=== PATIENT | female | born 1945 | race Caucasian/White ===

== ENCOUNTER → 2017-10-21 16:23 | Outpatient (CLI) | payer MEDICARE, SELFPAY ==
--- NOTE | 2017-10-21 | FLU_PTH ---
PATIENT: SALLY MCDANIELS LOC: [facility] U#:[id number] AGE/SX: 79/F ROOM: RE10/21/[address]: Dr. Charles Gonzalez MD : 1945 BED: DIS: SPEC #: [id number] RECD: 10/21/17 15:30 STATUS: TEDDY MIKHAIL #: [id number] SNOW: 10/21/17 00:[address]: Charles Gonzalez DEPT: CYTOLOGY RECD BY: Venkata Chappell ENTERED: 10/22/17 09:46 SP TYPE: Fluid OTHR DR: Ana Moe DO Tissues: Urine Procedures: Pap Stain (control) Special Stain Group II Surgery Specimen Level IV Cytospin Fluid HEADER OPERATION: Not noted PRE-OP DIAGNOSIS: Hematuria TISSUE SUBMITTED: Urine for cytology DIAGNOSIS CYTOLOGY Urine for cytology (cytospin): Rare atypical urothelial cells present. AM:ulices 10/23/17 COMMENT The findings are nonspecific and could represent a variety of conditions including infection, urolithiasis, instrumentation and low grade urothelial neoplasm. Clinical correlation is necessary. Case has been reviewed in consultation with Dr. Bhandari who concurs with the above diagnosis. IDC:AM CYTOLOGY STUDY Slides are reviewed. CYTOLOGY GROSS Received is 45 ml of cloudy yellow fluid labeled with the patient's name and and designated per the requisition as urine. Submitted for cytology preparation. /Abhishek 10/22/17 TC:? CPT: 28915
[2017-10-21 16:24] LABS: Cytology, Body Fluid / CSF SEE PATHOLOGY REPORT
== END ==
PROVIDERS: Visit Provider Urology
DX: R31.9 Hematuria, unspecified (principal)
CPT/HCPCS: 88108; 88305; 88313

== ENCOUNTER 2018-08-09 13:36 | Observation (INO) | payer MEDICARE, SELFPAY ==
[2018-08-09] VITALS (12 sets, daily range): BP systolic 123–189; BP diastolic 54–95; PULSE 94–123; RESP 17–30; TEMP 36.6–36.8; O2SAT 89–98; BMI 25.4
--- NOTE | 2018-08-09 14:13 | EKG12_ITS ---
Test Reason : SOB Blood Pressure : / mmHG Vent. Rate : 098 BPM Atrial Rate : 098 BPM P-R Int : 142 ms QRS Dur : 084 ms QT Int : 350 ms P-R-T Axes : 071 069 068 degrees QTc Int : 446 ms Normal sinus rhythm Minimal voltage criteria for LVH, may be normal variant Cannot rule out Inferior infarct , age undetermined Abnormal ECG Confirmed by LYNETTE HUSTON, CHENCHO ([id number]), loan expeditor FLEX SCHWAB ([id number]) on 08/11/2018 8:05:14 AM Referred By: Gordo Almaguer Confirmed By:CHENCHO OJEDA MD
--- NOTE | 2018-08-09 14:13 | RAD_ITS ---
STUDY: X-RAY CHEST REASON FOR EXAM: Female, 72 years old. Shortness of breath. Fatigue and congestion x5 days. TECHNIQUE: AP upright portable view. COMPARISON: None. FINDINGS: Mild pulmonary hyperinflation and flattening of the hemidiaphragms. Mild bibasilar fibrosis. Suspicious cystic changes in the upper lobes, right greater than left. There is no demonstrated pleural abnormality. Normal size heart. Normal mediastinum and frank. Normal visualized pulmonary arteries. Normal visualized aortic arch and descending thoracic aorta. Normal visualized thoracic spine. Normal visualized ribs, clavicles, and shoulders. There is no demonstrated abnormality of the visualized soft tissue structures of the upper abdomen. RAD/Chest 1 View (Portable) IMPRESSION: COPD with asymmetric bibasilar fibrosis and cystic changes in the upper lobes. Electronically Signed: Jayden Salomon MD at 15:10 EDT , Service support ,
[2018-08-09] MEDS: Ipratropium/Albuterol Sulfate 3 ML AMPUL.NEB INHALATION (14:24)
[2018-08-09 14:43] LABS: Absolute Lymphocyte Count 0.89 X10^3/ul (0.83-4.51); Absolute Neutrophil Count 15.1 X10^3/uL (2.0-7.7); Basophil# 0.02 X10^3/uL; Basophil% 0.1 % (0-1); Hematocrit 39.5 % (37-47); Hemoglobin 13.2 g/dl (12.0-15.0); Lymphocyte # 0.89 X10^3/ul (4.0); Mean Corp Hgb Conc 33.4 g/gl (32-36); Mean Corpuscular Hgb 28.9 pg (27.0-32.0); Mean Corpuscular Volume 86.6 fL (81-99); Mean Platelet Vol. 11.4 fl (6.2-12.0); Monocyte# 1.61 X10^3/uL; Monocyte% 9.1 % (0-10); Neutrophil # 15.11 X10^3/uL (2.7-7.7); Neutrophil % 85.3 % (47-70); Platelet Count 248 K/mm3 (150-450); RBC Distribution Width CV 12.7 % (11.6-14.6); RBC Distribution Width SD 39.6 fl (35.1-43.9); Red Blood Count 4.56 M/mm3 (4.2-5.4); White Blood Count 17.7 K/mm3 (4.4-11.0)
[2018-08-09 14:45] LABS: Differential Indicated SCAN CRITERIA MET; POSITIVE COUNT NO; POSITIVE DIFFERENTIAL YES; POSITIVE MORPHOLOGY NO
[2018-08-09 14:59] LABS: Differential Comment SCANNED
[2018-08-09 15:17] LABS: Lactic Acid 1.1 mmol/L (0.4-2.0)
[2018-08-09] MEDS: 0.9% Normal Saline 1,000 ML 150 ML IV (15:18)
[2018-08-09 15:43] LABS: Anion Gap 7 (5-15); BUN 11 mg/dL (7-18); Calcium,Total 9.4 mg/dL (8.5-10.1); Chloride 104 mmol/L (98-107); Creatinine, Serum 0.78 mg/dL (0.55-1.02); EST Glomerular Filtration Rate 76 mL/min (>60); Est Glom Filt Rate - Afr Amer 93 mL/min (>60); Estimated Creatinine Clearance 40.22 ml/min; Glucose 140 mg/dL (74-106); Potassium 3.6 mmol/L (3.5-5.1); Sodium Level 137 mmol/L (136-145)
--- NOTE | 2018-08-09 16:02 | CT_ITS ---
STUDY: CTA CHEST REASON FOR EXAM: Female, 72 years old. Shortness of breath. RADIATION DOSAGE (If Supplied By Facility): CTDIvol = ( 10.45 ) mGy, DLP = ( 336.66 ) mGycm TECHNIQUE: The examination was performed with the intravenous administration of 100 IV Isovue 370. Post-processing of the angiographic images was performed, with multiplanar reformation and 3D reconstruction. Individualized dose optimization techniques were used for this CT. COMPARISON: CT of the abdomen dated July 12, 2016 FINDINGS: The lungs are hyperinflated. There are diffuse emphysematous changes present. There is dependent consolidation within the right lower lobe that is partially nodular. There are additional scattered ill-defined opacities within the right upper lobe and throughout the left lung. Normal enhancement of the main pulmonary artery and right and left pulmonary arteries. Normal enhancement of the bilateral peripheral pulmonary arteries. There is no demonstrated pulmonary embolism. There is atherosclerotic calcification of the aortic arch and descending thoracic aorta. There is no demonstrated aortic dissection. There are calcifications of the coronary arteries. Normal mediastinum. Normal hilar regions. Normal visualized trachea and bronchi. Normal chest wall structures. Normal osseous structures. The limited images of the upper abdomen demonstrate prominent adrenal glands which may be secondary to underlying hypertrophy. There is a stable left renal cyst. CT/CTA Chest W/WO Contrast IMPRESSION: No demonstrated pulmonary embolism or arterial dissection. Emphysema. Dependent consolidation within the right lower lobe that is likely primarily secondary to a infectious process however given the somewhat nodular appearance cannot exclude underlying malignancy recommend short interval follow-up in 8-10 days. Scattered ill-defined opacities throughout the lungs again this may be secondary to an underlying infectious and/or neoplastic process. Atherosclerosis. Electronically Signed: Linda Elliott MD at 17:33 EDT Tel , Service support ,
[2018-08-09] MEDS: MethylPREDNISolone 125 MG/2 ML Vial IV (16:14)
[2018-08-09] MEDS: Albuterol 2.5 MG/3 ML VIAL.NEB. INHALATION ×2 (16:18)
--- NOTE | 2018-08-09 17:39 | ED.VISSUMM ---
- ER Visit Summary Date of Service: 08/09/18 Chief Complaint: Cough and shortness of breath History of Present Illness: The patient is a 72 F with cough and green sputum, head and chest congestion, shortness of breath for the past 5 days. She denies fever or chest pain to me. She is to quit smoking 15 years ago. She has no known history of COPD but states her doctor told her she probably has it. She does not use inhalers. Physical Examination: Blood pressure is 152/71, temperature 98.2, heart rate 115, respiratory rate 18, pulse ox 91% on room air. Nursing staff advises that she had dropped her sats into the upper 80s and was on nasal cannula at time of my exam. Head and neck examination grossly unremarkable. Heart is tachycardic and regular. Lungs sounds are diminished throughout. Abdomen is soft nontender. Lower extremity examination reveals no calf tenderness or edema. Test Results: EKG is sinus at 98 with no acute ischemia. CBC was a white count of 17.7 with 85% neutrophils. Chemistry studies unremarkable. Lactic acid normal. Blood cultures were obtained. Portable chest x-ray shows COPD with bibasilar fibrosis. Emergency Department Course and Treatment: Patient was initially given a DuoNeb treatment. On repeat evaluation she now has tight expiratory wheezes throughout. She is given IV Solu-Medrol and 2 additional albuterol treatments. Patient did have recent travel to [place] and back. CTA of the chest was obtained that shows no evidence of PE. Emphysema is noted. There is a dependent consolidation in the right lower lobe which is likely infectious. On repeat evaluation patient continues to be tachypneic with respiratory rate in the upper 20s. She continues to have some expiratory wheezes although it is improved when compared to last evaluation. She will be given a dose of Levaquin and admitted for further treatment. Treatment Plan: [] Disposition: Admit Impression: 1. COPD exacerbation 2. Bronchitis This note was generated with [employer] dictation software. It may contain incorrect words, spelling, and punctuation that were not noted in review of the chart prior to signing ED Disposition - Plan for ED Patient: Referrals: Sina Arnold MD [Primary Care Provider] -
[2018-08-09] MEDS: levoFLOXacin IV 750 MG/150 ML BAG 100 MG IV (18:07)
--- NOTE | 2018-08-09 18:07 | PCM.HP.STD ---
Problem List (1) HTN (hypertension) Status: Chronic (2) Acute respiratory failure with hypoxia Status: Acute (3) Pneumonia Status: Acute (4) IBS (irritable bowel syndrome) Status: Acute History of Present Illness Date of Admission: 08/09/18 Chief Complaint: Shortness of breath The patient is a 72 year old F history of hypertension and IBS, presenting 5 days of shortness of breath. She states that it started on Friday into Friday, and then on she felt like she might be getting a little bit better but then on Friday she felt little bit worse so she started taking NyQuil and DayQuil for the last several days and started coughing up some sputum but today she woke up and just could not breathe and felt significantly fatigued. No fevers or chills. She came into the ER and was found to have a possible pneumonia in the setting of a leukocytosis to 17,000. She is also noticed to be in the 80s on her pulse ox in the ER and had to be placed on 2 L nasal cannula which responded nicely. She states that she used to be a smoker and had been told that she probably has COPD but is never been tested for it. Past Medical History Past Medical History (Chronic Problems): Chronic Problems HTN (hypertension) (Chronic) Allergies No Known Allergies Allergy (Verified 08/09/18 13:41) Home Medications: Ambulatory Orders Medication Instructions Recorded Lisinopril [Zestril] 10 mg PO DAILY 08/09/18 Surgical History: cholecystectomy Lives: Spouse/ Significant Other Smoking Status: Former smoker Tobacco Use: Cigarettes Alcohol: None Drugs: None - *Family History Maternal History Items: Heart Disease, Stroke Paternal History Items: Heart Disease, Stroke Review of Systems Constitutional: Reports: Fatigue. Denies: Chills, Fever, Weight Change HEENT: Denies: Head Aches, Sinus Congestion, Sinus Drainage Cardiovascular: Denies: Chest Pain, Palpitations Respiratory: Reports: Cough, Shortness of Breath, Sputum production. Denies: Shortness of breath at rest Gastrointestinal: Denies: Abdominal Pain, Nausea, Vomiting Genitourinary: Denies: Dysuria Musculoskeletal: Denies: Joint Pain, Joint Tenderness Skin: Denies: Rash, Wounds Neurological: Denies: Numbness, Tingling, Focal weakness Psychiatric: Denies: Anxiety, Depression Hematologic/ Lymphatic: Denies: Easy Bruising, Easy Bleeding VTE Information - Inpt Only VTE Present on Admission: No Patient Problems: Active and Suspected Problems Acute respiratory failure with hypoxia (Acute) Pneumonia (Acute) IBS (irritable bowel syndrome) (Acute) - Physical Exam General: Alert, Oriented x3, Cooperative, No apparent distress HEENT: Atraumatic, PERRLA, EOMI, Normocephalic Oral: Dry Mucosa Neck: Supple, No JVD Lungs: No rhonchi, No rales, Diminished, Wheezes, - - Poor air movement Cardiovascular: Regular rate, Regular Rhythm, Normal S1, Normal S2, No murmurs Abdomen: Soft, Non Tender, Non-Distended, No Hepato-splenomegaly Extremities: No edema, Capillary Refill Less than 3 Seconds Skin: No rashes, No breakdown Neurological: Neuro grossly intact, Sensory exam intact to light touch and pain Psych/Mental Status: Normal Affect, Appropriate Vital Signs Temp Pulse Resp BP Pulse Ox 98.2 F 107 H 17 142/63 H 96 08/09/18 13:38 08/09/18 18:06 08/09/18 18:06 08/09/18 18:06 08/09/18 18:06 Oxygen Flow Rate (L/min) 2 Oxygen Delivery Method Nasal Cannula Weight: 138 lb 14.259 oz Body Mass Index (BMI) 25.4 Laboratory Tests Past 24 Hrs 08/09/18 08/09/18 08/09/18 14:33 14:33 14:33 WBC 17.7 H RBC 4.56 Hgb 13.2 Hct 39.5 MCV 86.6 MCH 28.9 MCHC 33.4 RDW 12.7 RDW Differential 39.6 Plt Count 248 MPV 11.4 Immature Gran % (Auto) 0.500 Neut % (Auto) 85.3 H Lymph % (Auto) 5.0 L [place] % (Auto) 9.1 Eos % (Auto) 0.0 Baso % (Auto) 0.1 Absolute Neuts (auto) 15.1 H Absolute Lymphs (auto) 0.89 Total Counted Not Reportable Differential Comment SCANNED Sodium Cancelled Potassium Cancelled Chloride Cancelled Carbon Dioxide Cancelled Anion Gap Cancelled BUN Cancelled Creatinine Cancelled Estim Creat Clear Calc Cancelled Est GFR (MDRD) Af Amer Cancelled Est GFR (MDRD) Non-Af Cancelled BUN/Creatinine Ratio Cancelled Glucose Cancelled Lactic Acid 1.1 Calcium Cancelled 08/09/18 15:00 WBC RBC Hgb Hct MCV MCH MCHC RDW RDW Differential Plt Count MPV Immature Gran % (Auto) Neut % (Auto) Lymph % (Auto) [place] % (Auto) Eos % (Auto) Baso % (Auto) Absolute Neuts (auto) Absolute Lymphs (auto) Total Counted Differential Comment Sodium 137 Potassium 3.6 Chloride 104 Carbon Dioxide 26.0 Anion Gap 7 BUN 11 Creatinine 0.78 Estim Creat Clear Calc 40.22 Est GFR (MDRD) Af Amer 93 Est GFR (MDRD) Non-Af 76 BUN/Creatinine Ratio 14.0 Glucose 140 H Lactic Acid Calcium 9.4 Assessment/Plan All Active Problems Acute respiratory failure with hypoxia (Acute) Pneumonia (Acute) IBS (irritable bowel syndrome) (Acute) 1. Acute hypoxic respiratory failure secondary to likely COPD exacerbation and sepsis secondary to community-acquired pneumonia gram-positive organism -We will obtain a urine strep and Legionella antigens -Blood cultures are pending -Continue with Levaquin daily -Lactate is unremarkable -Solu-Medrol 40 mg IV 3 times daily as well as DuoNeb -We will need to be discharged likely on an albuterol inhaler as well as a steroid course. -She will need to have PFTs done as an outpatient -Continue with nasal cannula 2 L, wean as able 2. HTN -Stable -Continue with lisinopril and monitor DVT: Lovenox Code Visit Inpatient E&M: 78144 Init Hosp L3
[2018-08-10] VITALS (8 sets, daily range): BP systolic 131–144; BP diastolic 49–66; PULSE 68–108; RESP 16–20; TEMP 36.8–37; O2SAT 91–98
[2018-08-10] MEDS: 0.9% Normal Saline 1,000 ML 100 ML IV ×2 (00:12→09:06)
[2018-08-10 05:48] LABS: Absolute Lymphocyte Count 0.77 X10^3/ul (0.83-4.51); Absolute Neutrophil Count 10.3 X10^3/uL (2.0-7.7); Basophil# 0.01 X10^3/uL; Basophil% 0.1 % (0-1); Hematocrit 36.4 % (37-47); Hemoglobin 11.7 g/dl (12.0-15.0); Lymphocyte # 0.77 X10^3/ul (4.0); Lymphocyte % 6.6 % (19-41); Mean Corp Hgb Conc 32.1 g/gl (32-36); Mean Corpuscular Hgb 28.5 pg (27.0-32.0); Mean Corpuscular Volume 88.6 fL (81-99); Mean Platelet Vol. 11.3 fl (6.2-12.0); Monocyte# 0.52 X10^3/uL; Monocyte% 4.5 % (0-10); Neutrophil # 10.31 X10^3/uL (2.7-7.7); Neutrophil % 88.3 % (47-70); Platelet Count 218 K/mm3 (150-450); RBC Distribution Width CV 12.8 % (11.6-14.6); RBC Distribution Width SD 40.4 fl (35.1-43.9); Red Blood Count 4.11 M/mm3 (4.2-5.4); White Blood Count 11.7 K/mm3 (4.4-11.0)
[2018-08-10 05:52] LABS: POSITIVE COUNT NO; POSITIVE DIFFERENTIAL NO; POSITIVE MORPHOLOGY NO
[2018-08-10 06:06] LABS: Anion Gap 10 (5-15); BUN 14 mg/dL (7-18); BUN/Creat Ratio 13.5 RATIO (10-20); Calcium,Total 9.2 mg/dL (8.5-10.1); Chloride 110 mmol/L (98-107); Creatinine, Serum 1.04 mg/dL (0.55-1.02); EST Glomerular Filtration Rate 55 mL/min (>60); Est Glom Filt Rate - Afr Amer 67 mL/min (>60); Estimated Creatinine Clearance 38.67 ml/min; Glucose 159 mg/dL (74-106); Potassium 3.7 mmol/L (3.5-5.1); Sodium Level 145 mmol/L (136-145)
[2018-08-10] MEDS: Ipratropium/Albuterol Sulfate 3 ML AMPUL.NEB INHALATION ×2 (06:45→11:06)
[2018-08-10] MEDS: Lisinopril 10 MG Tablet PO (08:57)
--- NOTE | 2018-08-10 11:07 | DCINST_ITS ---
- Discharge Diagnoses Current Active Problems: Current Active and Chronic Problems HTN (hypertension) (Chronic) Acute respiratory failure with hypoxia (Acute) Pneumonia (Acute) IBS (irritable bowel syndrome) (Acute) You will use the following diet at home:: Regular Your food should be the consistency of: Regular Your liquids should be the consistency of: Regular/Thin Discharge Activity: Return to Normal Activity, No Restrictions Call your doctor if you observe: Fever of 101 or Higher, Shortness of breath, Dizziness, Fainting spells, Swelling in the ankles, Chest pain, Increased palpitations (irregular heartbeat) Additional Instructions: PFT in 4 weeks once she has returned to baseline Allergies/Adverse Reactions: Allergies No Known Allergies Allergy (Verified 08/09/18 13:41) Medications to take at Discharge Lisinopril [Zestril] 10 mg PO DAILY 08/09/18 Albuterol IH (ProAir) [Proair Hfa] 2 puff INHALATION Q4H PRN PRN #1 inhaler 08/10/18 Prednisone [Deltasone] 40 mg PO DAILY #14 tablet 08/10/18 levoFLOXacin tablet [Levaquin tablet] 750 mg PO DAILY #5 tablet 08/10/18 The following prescriptions were given: Albuterol IH (ProAir) [Proair Hfa] 2 puff INHALATION Q4H PRN PRN #1 inhaler PRN Reason: Wheeze levoFLOXacin tablet [Levaquin tablet] 750 mg PO DAILY #5 tablet Prednisone [Deltasone] 40 mg PO DAILY #14 tablet Primary Care Physician: Sina Arnold MD [Primary Care Provider] - Please follow up with your Primary Care Physician in: 3-5 days Test Results: Test results from this visit will be discussed in further detail at your follow- up appointment, if applicable.
--- NOTE | 2018-08-10 11:13 | DS.PCM_ITS ---
Discharge Date and Diagnosis - Problem List Patient Problems: Active and Suspected Problems Acute respiratory failure with hypoxia (Acute) Pneumonia (Acute) IBS (irritable bowel syndrome) (Acute) Date of Admission: 08/09/18 Date of Discharge: 08/10/18 - Primary Discharge Diagnosis Active and Suspected Problems Acute respiratory failure with hypoxia (Acute) Pneumonia (Acute) IBS (irritable bowel syndrome) (Acute) - Secondary Discharge Diagnosis Chronic Problems HTN (hypertension) (Chronic) Hospital Course and Treatment Imaging Results: CTA Chest: IMPRESSION: No demonstrated pulmonary embolism or arterial dissection. Emphysema. Dependent consolidation within the right lower lobe that is likely primarily secondary to a infectious process however given the somewhat nodular appearance cannot exclude underlying malignancy recommend short interval follow-up in 8-10 days. Scattered ill-defined opacities throughout the lungs again this may be secondary to an underlying infectious and/or neoplastic process. Atherosclerosis. Operations: None Procedures: None Summary of Care Provided: Per HPI: The patient is a 72 year old F history of hypertension and IBS, presenting 5 days of shortness of breath. She states that it started on Friday into Friday, and then on she felt like she might be getting a little bit better but then on Friday she felt little bit worse so she started taking NyQuil and DayQuil for the last several days and started coughing up some sputum but today she woke up and just could not breathe and felt significantly fatigued. No fevers or chills. She came into the ER and was found to have a possible pneumonia in the setting of a leukocytosis to 17,000. She is also noticed to be in the 80s on her pulse ox in the ER and had to be placed on 2 L nasal cannula which responded nicely. She states that she used to be a smoker and had been told that she probably has COPD but is never been tested for it. Hospital Course: 1. Acute hypoxic respiratory failure secondary to likely COPD exacerbation and sepsis secondary to community-acquired pneumonia from gram-positive organism- 72-year-old female was admitted with shortness of breath and dyspnea. She said symptoms began after she upper respiratory infection and the cough. She became a little bit better on Friday and then got worse over the last several days and she had been taking NyQuil and DayQuil to no effect. When she presented to the ER she had a right lower lobe consolidation that was concerning for also possible malignancy and will likely need outpatient CT scan follow-up in 8 to 12 months given her smoking history, however she was started on Levaquin secondary to her leukocytosis and that resolved on the day of discharge. She will be sent home on no oxygen since she recovered faster than was anticipated, and she will be discharged on Levaquin, prednisone for 7 days, and albuterol inhaler. She will need pulmonary function test as an outpatient when she returns to baseline. She feels much better today and would like to go home. Patient Problems: Active and Suspected Problems Acute respiratory failure with hypoxia (Acute) Pneumonia (Acute) IBS (irritable bowel syndrome) (Acute) Objective: General: Alert, Oriented x3, Cooperative, No apparent distress HEENT: Atraumatic, PERRLA, EOMI, Normocephalic Oral: Dry Mucosa Neck: Supple, No JVD Lungs: No rhonchi, No rales, Diminished, Wheezes, - - Poor air movement Cardiovascular: Regular rate, Regular Rhythm, Normal S1, Normal S2, No murmurs Abdomen: Soft, Non Tender, Non-Distended, No Hepato-splenomegaly Extremities: No edema, Capillary Refill Less than 3 Seconds Skin: No rashes, No breakdown Neurological: Neuro grossly intact, Sensory exam intact to light touch and pain Psych/Mental Status: Normal Affect, Appropriate - Physical Exam Vital Signs Temp Pulse Resp BP Pulse Ox 98.3 F 68 16 132/49 H 98 08/10/18 08:50 08/10/18 08:50 08/10/18 08:50 08/10/18 08:50 08/10/18 08:50 Oxygen Flow Rate (L/min) 1 Oxygen Delivery Method Room Air Weight: 139 lb 1.787 oz Body Mass Index (BMI) 25.4 Intake and Output for Last 24 Hours 08/08/18 08/09/18 08/10/18 23:59 23:59 23:59 Intake Total 1651 / 1651 Balance 1651 / 1651 Microbiology Past 72 Hours 08/10/18 05:00 Legionella Antigen - Final Interface Orders Streptococcus pneumoniae Antigen (M - Final 08/09/18 22:20 Gram Stain - Preliminary Sputum, Expectorated/Coughed Laboratory Tests Past 24 Hrs 08/09/18 08/09/18 08/09/18 14:33 14:33 14:33 WBC 17.7 H RBC 4.56 Hgb 13.2 Hct 39.5 MCV 86.6 MCH 28.9 MCHC 33.4 RDW 12.7 RDW Differential 39.6 Plt Count 248 MPV 11.4 Immature Gran % (Auto) 0.500 Neut % (Auto) 85.3 H Lymph % (Auto) 5.0 L [place] % (Auto) 9.1 Eos % (Auto) 0.0 Baso % (Auto) 0.1 Absolute Neuts (auto) 15.1 H Absolute Lymphs (auto) 0.89 Total Counted Not Reportable Differential Comment SCANNED Sodium Cancelled Potassium Cancelled Chloride Cancelled Carbon Dioxide Cancelled Anion Gap Cancelled BUN Cancelled Creatinine Cancelled Estim Creat Clear Calc Cancelled Est GFR (MDRD) Af Amer Cancelled Est GFR (MDRD) Non-Af Cancelled BUN/Creatinine Ratio Cancelled Glucose Cancelled Lactic Acid 1.1 Calcium Cancelled 08/09/18 08/10/18 08/10/18 15:00 04:58 04:58 WBC 11.7 H RBC 4.11 L Hgb 11.7 L Hct 36.4 L MCV 88.6 MCH 28.5 MCHC 32.1 RDW 12.8 RDW Differential 40.4 Plt Count 218 MPV 11.3 Immature Gran % (Auto) 0.500 Neut % (Auto) 88.3 H Lymph % (Auto) 6.6 L [place] % (Auto) 4.5 Eos % (Auto) 0.0 Baso % (Auto) 0.1 Absolute Neuts (auto) 10.3 H Absolute Lymphs (auto) 0.77 L Total Counted Not Reportable Differential Comment Sodium 137 145 Potassium 3.6 3.7 Chloride 104 110 H Carbon Dioxide 26.0 25.0 Anion Gap 7 10 BUN 11 14 Creatinine 0.78 1.04 H Estim Creat Clear Calc 40.22 38.67 Est GFR (MDRD) Af Amer 93 67 Est GFR (MDRD) Non-Af 76 55 L BUN/Creatinine Ratio 14.0 13.5 Glucose 140 H 159 H Lactic Acid Calcium 9.4 9.2 Discharge Activity: Return to Normal Activity, No Restrictions Call your doctor if you observe: Fever of 101 or Higher, Shortness of breath, Dizziness, Fainting spells, Swelling in the ankles, Chest pain, Increased palpitations (irregular heartbeat) Home Medications: Medications to take at Discharge Lisinopril [Zestril] 10 mg PO DAILY 08/09/18 Albuterol IH (ProAir) [Proair Hfa] 2 puff INHALATION Q4H PRN PRN #1 inhaler 08/10/18 Prednisone [Deltasone] 40 mg PO DAILY #14 tablet 08/10/18 levoFLOXacin tablet [Levaquin tablet] 750 mg PO DAILY #5 tablet 08/10/18 Following Prescrptions Were Given to Patient: Albuterol IH (ProAir) [Proair Hfa] 2 puff INHALATION Q4H PRN PRN #1 inhaler PRN Reason: Wheeze levoFLOXacin tablet [Levaquin tablet] 750 mg PO DAILY #5 tablet Prednisone [Deltasone] 40 mg PO DAILY #14 tablet Primary Care Physician: Sina Arnold MD [Primary Care Provider] - Please follow up with your Primary Care Physician in: 3-5 days Disposition: Home Minutes spent on discharge:: 35 Patient Condition:: Stable Medical Necessity - Tobacco Use Smoking Status: Former smoker Tobacco Use: Cigarettes Meaningful Use Info Meaningful Use Diagnoses (Choose all that apply): None applicable Code Visit OBSV E&M: 07758 Observation care discharge
--- NOTE | 2018-08-12 04:19 | PCM.PN.BLA ---
Progress Note Received a call from lab that patient was already been discharged had a positive blood culture in anaerobic bottle. Blood culture showed gram-negative rods. Review of records shows that patient who was admitted for Acute hypoxic respiratory failure secondary to likely COPD exacerbation and sepsis secondary to community-acquired pneumonia had being admitted on 08-09-18 and discharged on 08-10-18. Patient received Levaquin which empirically is effective for gram negative rods. Levaquin was started on 08-09-18. She received her only dose at the ED at 1807 on 08-09-18. Patient creatinine clearance at the Hospital was (40.22, 38.67). At discharge Patient was prescribed five (5) tablets of Levaquin to be taken daily for 5 days . Of note her sputum inpatient showed gram negative rods which was interpreted as probably respiratory leonor. Discussed with patient to take her antibiotics every other day. She has 3 more pills of 750 mg of Levaquin left. Discussed with patient that if she has a fever or chills she come to the emergency department or call PCP. Patient to see her PCP next day. Discussed with patient that per previous discharge instructions she should discuss with PCP to get PFT when she feels better.
== END 2018-08-10 12:19 | disposition home or self-care (01) ==
LOC: ED 15:08 → MS3 19:13
PROVIDERS: Admitting Provider Family Medicine; Emergency Provider Emergency Medicine; Family Provider Family Medicine; PCP Family Medicine; Referring Provider Family Medicine; Visit Provider Family Medicine
DX: J96.01 Acute respiratory failure with hypoxia (principal); J18.9 Pneumonia, unspecified organism; K58.9 Irritable bowel syndrome, unspecified; I10 Essential (primary) hypertension; Z79.899 Other long term (current) drug therapy; Z87.891 Personal history of nicotine dependence
CPT/HCPCS: 36415; 71045; 71275; 80048; 83605; 85025; 87040; 87070; 87077; 87186; 87205; 87449; 93005; 94640; 96361; 96365; 96375; 96376; 99218; 99285; J7030; Q9967; A4216; G0378

== ENCOUNTER → 2018-11-17 16:45 | Outpatient (CLI) | payer MEDICARE, SELFPAY ==
[2018-08-09 19:51] VITALS: BMI 25.4
--- NOTE | 2018-11-17 | FLU_PTH ---
PATIENT: SALLY MCDANIELS LOC: [facility] U#:[id number] AGE/SX: 79/F ROOM: RE11/17/[address]: Dr. Charles Gonzalez MD : 1945 BED: DIS: SPEC #: [id number] RECD: 11/17/18 13:00 STATUS: TEDDY MIKHAIL #: [id number] SNOW: 11/17/18 00:[address]: Charles Gonzalez DEPT: CYTOLOGY RECD BY: Venkata Chappell ENTERED: 11/18/18 09:10 SP TYPE: Fluid OTHR DR: Dr. Sina Arnold MD Tissues: Urine Procedures: Special Stain Group II Surgery Specimen Level IV Cytospin Fluid HEADER OPERATION: Not noted PRE-OP DIAGNOSIS: Hematuria TISSUE SUBMITTED: Urine for cytology DIAGNOSIS CYTOLOGY Urine for cytology (cytospin): Negative for malignant cells. AM:ulices 11/19/18 CYTOLOGY STUDY Slides are reviewed. CYTOLOGY GROSS Received is 70 ml of yellow hazy fluid labeled with the patient's name and and designated per the requisition as urine. Submitted for cytology preparation. /CC:cc 11/18/18 TC:5 [facility]: [id number]
[2018-11-17 17:22] LABS: Cytology, Body Fluid / CSF SEE PATHOLOGY REPORT
== END ==
PROVIDERS: Family Provider Family Medicine; PCP Family Medicine; Referring Provider Urology; Visit Provider Urology
DX: R31.9 Hematuria, unspecified (principal)
CPT/HCPCS: 88108; 88305; 88313

== ENCOUNTER 2023-01-29 15:49 | Emergency (ER) | payer MEDICARE, SELFPAY ==
[2023-01-29 15:51] VITALS: BP 155/67; PULSE 86; RESP 19; TEMP 36.4; O2SAT 94; BMI 27.9
--- NOTE | 2023-01-29 15:58 | EKG12_ITS ---
Test Reason : CP Blood Pressure : / mmHG Vent. Rate : 092 BPM Atrial Rate : 092 BPM P-R Int : 172 ms QRS Dur : 080 ms QT Int : 348 ms P-R-T Axes : 076 064 070 degrees QTc Int : 430 ms Normal sinus rhythm Cannot rule out Inferior infarct , age undetermined Abnormal ECG Confirmed by LYNETTE HUSTON, CHENCHO ([id number]), supervising film or videotape editor FLEX SCHWAB ([id number]) on 01/30/2023 10:50:15 AM Referred By: ARNEL Confirmed By:CHENCHO OJEDA MD
--- NOTE | 2023-01-29 16:00 | ED.VIS.CHEST ---
HPI History of Present Illness Chief Complaint: Chest Pain Narrative Narrative: 77-year-old for male past medical history of hypertension and COPD presents with left-sided to midsternal chest pain that she has had since this morning. She states that she has pain that becomes sharp when she tries to take a deep breath in. She denies any fevers or chills, no cough, no leg swelling. The only exacerbating symptoms are when she tries to take a deep breath. She denies any back pain or tearing sensation between her scapulae. She states that she does not see a mechanic general operational test because although she has had chest pain in the past, they do not find anything on her stress tests. [facility] Medical History COPD (chronic obstructive pulmonary disease) Home Medications lisinopril 10 mg tablet 10 mg PO DAILY bp 08/09/18 [History Last Taken 08/05/18 08:00 10 mg] albuterol sulfate 90 mcg/actuation aerosol inhaler (ProAir HFA) 2 puff inhalation Q4H PRN PRN Wheeze ##1 08/10/18 [Rx Last Taken Unknown] levofloxacin 750 mg tablet 750 mg PO DAILY ##5 08/10/18 [Rx Last Taken Unknown] prednisone 20 mg tablet (Deltasone) 40 mg (2 x 20 mg) PO DAILY #14 tabs 08/10/18 [Rx Last Taken Unknown] Allergy/AdvReac Type Severity Reaction Status Date / Time Iodinated Contrast Media Allergy PT UNSURE Verified 01/29/23 15:51 OF REACTION Social History Smoking Status: Former smoker ROS ROS ED ROS Narrative Constitutional: No fever, no chills. HEENT: No sore throat. No neck pain. No loss of vision. No rhinorrhea. Cardiovascular: Positive left-sided to midsternal chest pain. Positive pleuritic pain. No back pain or tearing sensation. No palpitations. No pedal edema. Respiratory: No cough, no shortness of breath. Abdominal: No abdominal pain. No nausea. No vomiting. Genitourinary: No dysuria. No hematuria. Musculoskeletal: No myalgias. No arthralgias. Neurologic: No headaches. No dizziness. No lightheadedness. Skin: No rash. No change in color. Psychiatric: No depression. No anxiety. EXAM Physical Exam Narrative Exam Narrative: Afebrile. Vital signs noted. HEENT: Normocephalic. Atraumatic. PERRL, EOMI. Neck soft and supple. No point tenderness or step off. Cardiovascular: Regular rate and rhythm. No murmurs, rubs, or gallops appreciated. Respiratory: No tachypnea. Lungs clear to auscultation bilaterally. Gastrointestinal: Abdomen soft, nontender, with normoactive bowel sounds. No rebound or guarding. Neurological: Awake. Alert. Nonfocal, nonlateralizing. Skin: No rash. Normal color. No pallor. Musculoskeletal: No pedal edema. Full range of motion extremities. Const Vital Signs: 01/29/23 15:51 01/29/23 15:59 01/29/23 17:51 Temperature 97.5 F L Temperature Source Oral Pulse Rate 86 Respiratory Rate 19 H Blood Pressure 155/67 H Blood Pressure Mean 96 Pulse Ox 94 Oxygen Delivery Method Room Air Room Air Room Air Oxygen Flow Rate (L/min) 94 01/29/23 17:51 01/29/23 16:50 01/29/23 17:50 Temperature Temperature Source Pulse Rate 83 80 78 Respiratory Rate 14 23 H 25 H Blood Pressure 128/106 H 129/57 H Blood Pressure Mean 113 81 Pulse Ox 93 94 Oxygen Delivery Method Room Air Room Air Oxygen Flow Rate (L/min) 01/29/23 18:00 Temperature Temperature Source Pulse Rate 79 Respiratory Rate 26 H Blood Pressure 129/58 H Blood Pressure Mean 81 Pulse Ox 94 Oxygen Delivery Method Room Air Oxygen Flow Rate (L/min) MDM MDM MDM Narrative Medical decision making narrative: In the differential diagnosis is ACS versus pulmonary embolism versus pneumothorax versus pneumonia. I have lower suspicion for pneumonia because the history and physical is not supportive of that, she has no fever or productive cough. I have low concern for aortic dissection as she has equal pulses on her examination, and no evidence of back pain or tearing sensation. Although she has a pleuritic component to her chest pain, she is PERC negative with a normal pulse of 86. Chest pain work-up was pursued. This included D-dimer. EKG was obtained and interpreted by myself independently as normal sinus rhythm at 92 bpm without ectopy or acute ST changes. No STEMI. She was administered aspirin. I reviewed her laboratory work and she has slightly elevated white count of 13.1 which I think is nonspecific, hemoglobin normal at 14.4, hematocrit 46.1, platelet count normal at 263. Initially, I thought that he had canceled the D-dimer, but it is negative at 0.29, I had added a second 1 which is less than 0.27 and also negative. I reviewed her electrolyte panel and she has elevated chloride of 109 which I think is nonspecific, BUN of 19 with creatinine 1.18. 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 Initially she was given Tylenol for her pleuritic chest pain, then Toradol, and a DuoNeb aerosolized treatment as well. Although she has an elevated glucose of 173, she has a normal anion gap. I have low concern for diabetic ketoacidosis. Chest x-ray in 1 view interpreted by myself shows no evidence of an acute process, no pneumonia or pneumothorax. I am not sure why she is still having her pleuritic chest pain. Her initial high-sensitivity troponin was obtained and reviewed and is 7 with repeat at 2 hours being 6 for a negative delta troponin. At this point in time, upon repeat examination, she states she feels slightly improved. Think she has more pleurisy. I do not feel a reason that she would need to be admitted or observed in the hospital. Through shared decision making, she would like to go home and follow-up with her primary care provider. She has an appointment next week. I feel she be discharged safely home with follow-up. Return instructions were reviewed. Disposition is discharged home in stable condition. History & Record Review Discussion w/independent historian: Patient Additional record(s) reviewed:: Prior ED visit and Prior labs Lab Data Attestation: I reviewed the patient's lab results. Labs: Laboratory Results - last 24 hr 01/29/23 01/29/23 15:55 18:00 WBC 13.1 H RBC 4.96 Hgb 14.4 Hct 46.1 MCV 92.9 MCH 29.0 MCHC 31.2 L RDW Std Deviation 42.0 RDW Coeff of Trang 12.4 Plt Count 263 MPV 10.8 Immature Gran % (Auto) 0.500 Neut % (Auto) 73.5 H Lymph % (Auto) 17.3 L [place] % (Auto) 6.9 Eos % (Auto) 1.4 Baso % (Auto) 0.4 Absolute Neuts (auto) 9.7 H Absolute Lymphs (auto) 2.27 Nucleated RBC % 0 D-Dimer Quant (PE/DVT) 0.29 < 0.27 L Sodium 141 Potassium 3.7 Chloride 109 H Carbon Dioxide 25.0 Anion Gap 7 BUN 19 H Creatinine 1.18 H Estim Creat Clear Calc 31.58 Est GFR (MDRD) Af Amer 57 L Est GFR (MDRD) Non-Af 47 L BUN/Creatinine Ratio 16.1 Glucose 173 H Calcium 9.4 Troponin I High Sens 7 6 Radiography Diagnostic Testing: Clinical Impression(s) from Imaging Studies Chest X-Ray 01/29/23 16:03 IMPRESSION: No radiographic evidence of acute cardiopulmonary disease. Electronically Signed: Tiffanie Crawford MD at 16:34 EST Reading Location ID and State: [id number] / Tel , Service support , Discharge Plan Triage Chief Complaint: Chest Pain ED Provider: Jayden Sandoval Dx/Rx/DC Orders Clinical Impression: Pleuritic chest pain, Chest pain Instructions: ED Chest Pain, Uncertain Cause, ED Pleurisy Prescriptions: No Action lisinopril 10 MG tablet 10 mg PO DAILY prednisone [Deltasone] 20 MG tablet 40 mg PO DAILY Qty: 14 0RF Rx Instructions: With food levofloxacin 750 MG tablet 750 mg PO DAILY Qty: 5 0RF albuterol sulfate [ProAir HFA] 1 PUFF inhaler 2 puff inhalation Q4H PRN PRN (Reason: Wheeze) Qty: 1 0RF Primary Care Provider: Sina Arnold Referrals: Sina Arnold MD [Primary Care Provider] - 1-2 Days if not improving Disposition Disposition: Home, Self Care
--- NOTE | 2023-01-29 16:03 | RAD_ITS ---
INDICATION: chest pain EXAMINATION/TECHNIQUE: X-RAY - XR Chest 1 View COMPARISON: 08/09/2018. FINDINGS: LINES/DEVICES: None. LUNGS: No consolidation, edema or effusion. No pneumothorax. MEDIASTINUM AND CARDIOVASCULAR STRUCTURES: Cardiac silhouette not enlarged. Central airways and mediastinal contour are unremarkable. BONES AND SOFT TISSUES: Chronic left rib fractures. RAD/Chest 1 View (Portable) IMPRESSION: No radiographic evidence of acute cardiopulmonary disease. Electronically Signed: Tiffanie Crawford MD at 16:34 EST Reading Location ID and State: [id number] / Tel , Service support ,
[2023-01-29 16:08] LABS: Absolute Lymphocyte Count 2.27 X10^3/uL (0.83-4.51); Absolute Neutrophil Count 9.7 X10^3/uL (2.0-7.7); Basophil# 0.05 X10^3/uL; Basophil% 0.4 % (0-1); Eosinophil# 0.18 X10^3/uL; Eosinophils% 1.4 % (0-5); Hematocrit 46.1 % (37-47); Hemoglobin 14.4 g/dL (12.0-15.0); Lymphocyte # 2.27 X10^3/ul (0.83-4.51); Lymphocyte % 17.3 % (19-41); Mean Corp Hgb Conc 31.2 g/dL (32-36); Mean Corpuscular Volume 92.9 fL (81-99); Mean Platelet Vol. 10.8 fl (6.2-12.0); Monocyte# 0.91 X10^3/uL; Monocyte% 6.9 % (0-10); NRBC Flagged by Analyzer 0 % (0-5); Neutrophil # 9.67 X10^3/uL (2.7-7.7); Neutrophil % 73.5 % (47-70); Platelet Count 263 K/mm3 (150-450); RBC Distribution Width CV 12.4 % (11.6-14.6); Red Blood Count 4.96 M/mm3 (4.2-5.4); White Blood Count 13.1 K/mm3 (4.4-11.0)
[2023-01-29 16:24] LABS: D-Dimer Quantitative (DVT/PE) 0.29 FEU/ug/m (0.27-0.49)
[2023-01-29 16:28] LABS: Anion Gap 7 (5-15); BUN 19 mg/dL (7-18); BUN/Creat Ratio 16.1 RATIO (10-20); Calcium,Total 9.4 mg/dL (8.5-10.1); Chloride 109 mmol/L (98-107); Creatinine, Serum 1.18 mg/dL (0.55-1.02); EST Glomerular Filtration Rate 47 mL/min (>60); Est Glom Filt Rate - Afr Amer 57 mL/min (>60); Estimated Creatinine Clearance 31.58 ml/min; Glucose 173 mg/dL (74-106); Potassium 3.7 mmol/L (3.5-5.1); Sodium Level 141 mmol/L (136-145); Troponin-I HS (w/2H Reflex) 7 pg/mL (3.0-54.0)
[2023-01-29] MEDS: 0.9% Normal Saline (1000mL) 1,000 ML 150 ML IV (16:41)
[2023-01-29] MEDS: Aspirin 81 MG TAB.CHEW 324 MG PO (16:41)
[2023-01-29 16:50] VITALS: BP 128/106; PULSE 80; RESP 23; O2SAT 93
[2023-01-29] MEDS: Ipratropium/Albuterol Sulfate 3 ML AMPUL.NEB INHALATION (17:48)
[2023-01-29 17:50] VITALS: BP 129/57; PULSE 78; RESP 25; O2SAT 94
[2023-01-29 17:51] VITALS: PULSE 83; RESP 14
[2023-01-29] MEDS: Acetaminophen 325 MG Tablet 650 MG PO (17:56)
[2023-01-29 18:00] VITALS: BP 129/58; PULSE 79; RESP 26; O2SAT 94
[2023-01-29 18:03] LABS: Reflex Troponin-HS? (from REC) Y
[2023-01-29] MEDS: Ketorolac 15 MG/ML Vial IV (18:10)
[2023-01-29 18:26] LABS: D-Dimer Quantitative (DVT/PE) < 0.27 FEU/ug/m (0.27-0.49)
[2023-01-29 18:29] LABS: Troponin-I HS 6 pg/mL (3.0-54.0)
== END 2023-01-29 19:12 | disposition home or self-care (01) ==
PROVIDERS: Emergency Provider Emergency Medicine; PCP Family Medicine; Visit Provider Emergency Medicine
DX: R07.89 Other chest pain (principal); J44.9 Chronic obstructive pulmonary disease, unspecified; I10 Essential (primary) hypertension; Z87.891 Personal history of nicotine dependence
CPT/HCPCS: 71045; 80048; 84484; 85025; 85379; 93005; 94640; 96361; 96374; 99283; J7030; A4216

== ENCOUNTER 2024-03-05 12:08 | Emergency (ER) | payer MEDICARE, SELFPAY ==
[2024-03-05 12:10] VITALS: BP 127/53; PULSE 63; RESP 18; TEMP 36.6; O2SAT 94; BMI 26.5
--- NOTE | 2024-03-05 15:33 | EX.ED.DYSGE1 ---
HPI History of Present Illness Chief Complaint: Rash Informant: patient and spouse/S.O. Narrative Narrative: 78-year-old female presenting to the emergency room with rash. Patient states that over a week and 1/2 to 2 weeks ago she noticed some small red spots on her right leg. Few days after began she went to her primary care provider and she was put on Keflex. She states that it is not gotten any better and in fact has worsened and is now on both sides and is very itchy painful. She denies any bleeding anywhere. She states she typically has some microscopic blood in the urine. She has not had any fevers. She had COVID in January. She denies any trauma to the leg. She notes a history of COPD and hypertension. She has photos of the rash recently but not from when it started. She points to the small 2 mm round brighter red lesions stating that is what it looked like when it started. [facility] Medical History (Updated 03/05/24 @ 15:[address] Simeon Arthur DO) HTN (hypertension) COPD (chronic obstructive pulmonary disease) Home Medications ?Medication ?Instructions ?Recorded ?Last Taken ?Type lisinopril 10 mg tablet 10 mg PO DAILY bp 08/09/18 08/05/18 08:00 History 10 mg albuterol sulfate 90 mcg/actuation 2 puff inhalation Q4H PRN PRN 08/10/18 Unknown Rx aerosol inhaler (ProAir HFA) Wheeze ##1 levofloxacin 750 mg tablet 750 mg PO DAILY ##5 08/10/18 Unknown Rx prednisone 20 mg tablet (Deltasone) 40 mg (2 x 20 mg) PO DAILY #14 tabs 08/10/18 Unknown Rx Allergy/AdvReac Type Severity Reaction Status Date / Time doxycycline Allergy Swelling Verified 03/05/24 12:10 Iodinated Contrast Media Allergy PT UNSURE Verified 03/05/24 12:10 OF REACTION Social History Smoking Status: Former smoker ROS ROS ED Constitutional Constitutional ED: Denies chills, fever(s) or weight loss Eyes Eyes: Denies change in vision or diplopia ENT ENT ED: Denies ear pain, rhinorrhea or sore throat Cardiovascular Cardiovascular: Denies chest pain, orthopnea, palpitations or racing heartbeat Respiratory/Chest Respiratory/Chest: Denies cough, dyspnea or orthopnea Gastrointestinal Gastrointestinal: Denies abdominal pain, diarrhea, nausea or vomiting Genitourinary Genitourinary ED: Denies dysuria, hematuria or urinary frequency Musculoskeletal Musculoskeletal: Denies arthralgias or myalgias Integumentary Reports rash; Denies abscess Neurologic Neurologic: Denies headache(s) or weakness Psychiatric Psychiatric: Denies anxiety, depression, suicidal ideation or suicidal thoughts Endocrine Endocrinology: Denies polydipsia, polyphagia or polyuria Allergic/Immunologic Allergic/Immunologic ED: Denies mouth swelling, tongue swelling or urticaria EXAM Physical Exam Const Vital Signs: 03/05/24 12:10 Temperature 97.8 F Temperature Source Temporal Pulse Rate 63 Respiratory Rate 18 Blood Pressure 127/53 H Blood Pressure Mean 77 Pulse Ox 94 Oxygen Delivery Method Room Air Positive well nourished and well developed General Appearance ED: well developed HEENT Reports normocephalic, head/scalp atraumatic and moist mucous membranes Eyes PERRL and EOMs intact bilaterally Neck no lymphadenopathy, supple and no JVD Resp normal respiratory effort and clear to auscultation bilaterally Cardio regular rate, regular rhythm and no murmurs GI normal to inspection, nondistended, normoactive bowel sounds and non-tender Palpation: soft Back/Spine no CVA tenderness and normal ROM Extremity normal to inspection General Extremety ED: Negative for edema General Extremity: Negative for edema Neuro oriented x3 and CN's II-XII intact bilaterally Sensorium / Orientation: alert Motor Exam: strength 5/5 throughout Psych mental status grossly normal Mood & Affect: Negative for depressed or tearful Skin no wounds Skin Narrative: There is a petechial-like rash located on the bilateral lower extremities. Most significant along the great toes on the dorsum bilaterally as well as the medial distal leg on the right. None of these areas yamilka. Some are 2 mm round largest or more coalescent into slightly palpable dark purple lesions. Please see photograph. I do not see any lesions on the palms or soles. There is no significant swelling. MDM MDM MDM Narrative Medical decision making narrative: Differential diagnosis includes but not limited to ITP TTP vasculitis thrombocytopenia ecchymosis cellulitis Pictures were obtained to be placed in the patient's chart. Patient's white count is 7.3 with a hemoglobin of 14.8. Platelet count is 238. There is a normal differential. 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 I will be placing her on prednisone. Would recommend PCP follow-up. She understands that the lesions themselves are going to take weeks to fully resolve but hopefully with the prednisone we can stop the spread. History & Record Review Discussion w/independent historian: Patient and Significant other Lab Data Attestation: I reviewed the patient's lab results. Labs: Laboratory Results - last 24 hr 03/05/24 15:42 WBC 7.3 RBC 5.18 Hgb 14.8 Hct 46.5 MCV 89.8 MCH 28.6 MCHC 31.8 L RDW Std Deviation 43.1 RDW Coeff of Trang 13.2 Plt Count 238 MPV 10.6 Immature Gran % (Auto) 0.600 Neut % (Auto) 59.7 Lymph % (Auto) 26.5 [place] % (Auto) 8.9 Eos % (Auto) 3.9 Baso % (Auto) 0.4 Absolute Neuts (auto) 4.3 Absolute Lymphs (auto) 1.93 Nucleated RBC % 0 Discharge Plan Triage Chief Complaint: Rash ED Provider: Simeon Arthur Dx/Rx/DC Orders Prescriptions: No Action lisinopril 10 MG tablet 10 mg PO DAILY prednisone [Deltasone] 20 MG tablet 40 mg PO DAILY Qty: 14 0RF Rx Instructions: With food levofloxacin 750 MG tablet 750 mg PO DAILY Qty: 5 0RF albuterol sulfate [ProAir HFA] 1 PUFF inhaler 2 puff inhalation Q4H PRN PRN (Reason: Wheeze) Qty: 1 0RF Primary Care Provider: Sina Arnold Referrals: Sina Arnold MD [Primary Care Provider] - Print Language: Nepalese
[2024-03-05 15:48] LABS: Absolute Lymphocyte Count 1.93 X10^3/uL (0.83-4.51); Absolute Neutrophil Count 4.3 X10^3/uL (2.0-7.7); Basophil# 0.03 X10^3/uL; Basophil% 0.4 % (0-1); Eosinophil# 0.28 X10^3/uL; Eosinophils% 3.9 % (0-5); Hematocrit 46.5 % (37-47); Hemoglobin 14.8 g/dL (12.0-15.0); Lymphocyte # 1.93 X10^3/ul (0.83-4.51); Lymphocyte % 26.5 % (19-41); Mean Corp Hgb Conc 31.8 g/dL (32-36); Mean Corpuscular Hgb 28.6 pg (27.0-32.0); Mean Corpuscular Volume 89.8 fL (81-99); Mean Platelet Vol. 10.6 fl (6.2-12.0); Monocyte# 0.65 X10^3/uL; Monocyte% 8.9 % (0-10); NRBC Flagged by Analyzer 0 % (0-5); Neutrophil # 4.34 X10^3/uL (2.7-7.7); Neutrophil % 59.7 % (47-70); Platelet Count 238 K/mm3 (150-450); RBC Distribution Width CV 13.2 % (11.6-14.6); RBC Distribution Width SD 43.1 fl (35.1-43.9); Red Blood Count 5.18 M/mm3 (4.2-5.4); White Blood Count 7.3 K/mm3 (4.4-11.0)
[2024-03-05 15:57] LABS: Prothrombin Time (Protime)PT. 13.5 SECONDS (11.7-14.9)
[2024-03-05 15:58] LABS: Partial Thromboplast Time 31.6 Seconds (24.1-36.2)
[2024-03-05 16:02] LABS: Anion Gap 5 (5-15); BUN 13 mg/dL (7-18); BUN/Creat Ratio 13.5 RATIO (10-20); Calcium,Total 9.4 mg/dL (8.5-10.1); Chloride 110 mmol/L (98-107); Creatinine, Serum 0.96 mg/dL (0.55-1.02); EST Glomerular Filtration Rate 59 mL/min (>60); Est Glom Filt Rate - Afr Amer 72 mL/min (>60); Estimated Creatinine Clearance 41.28 ml/min; Glucose 103 mg/dL (74-106); Potassium 3.9 mmol/L (3.5-5.1); Sodium Level 142 mmol/L (136-145)
[2024-03-05 16:15] VITALS: BP 127/53; PULSE 63; RESP 18; TEMP 36.6; O2SAT 94
== END 2024-03-05 16:19 | disposition home or self-care (01) ==
PROVIDERS: Emergency Provider Emergency Medicine; PCP Family Medicine; Referring Provider Emergency Medicine; Visit Provider Emergency Medicine
DX: R21 Rash and other nonspecific skin eruption (principal); J44.9 Chronic obstructive pulmonary disease, unspecified; I10 Essential (primary) hypertension; Z87.891 Personal history of nicotine dependence; Z79.899 Other long term (current) drug therapy; I77.6 Arteritis, unspecified
CPT/HCPCS: 80048; 85025; 85610; 85730; 99283

== ENCOUNTER → 2024-03-11 | Outpatient (CLI) | payer MEDICARE, SELFPAY ==
[2024-03-11 11:35] LABS: Color, Urine Yellow (Yellow); Glucose, Dipstick Normal (Normal); Ketone-Dipstick Negative (Negative); Leukocyte Esterase-Dipstick 25 /ul (Negative); Nitrite-Dipstick Negative (Negative); Occult Blood-Urine 150 /ul (Negative); Protein-Dipstick 100 mg/dl (Negative); Urine Bilirubin Dipstick Negative (Negative); Urine Clarity Sl. Cloudy (Clear); Urine Urobilinogen Normal (Normal)
[2024-03-11 12:27] LABS: Erythrocyte Sedimentation Rate 13 mm/hr (0-30)
[2024-03-11 12:29] LABS: Absolute Lymphocyte Count 1.82 X10^3/uL (0.83-4.51); Absolute Neutrophil Count 8.1 X10^3/uL (2.0-7.7); Basophil# 0.07 X10^3/uL; Basophil% 0.6 % (0-1); Hematocrit 46.9 % (37-47); Lymphocyte # 1.82 X10^3/ul (0.83-4.51); Lymphocyte % 16.3 % (19-41); Mean Corpuscular Hgb 28.5 pg (27.0-32.0); Mean Platelet Vol. 10.8 fl (6.2-12.0); Monocyte# 0.78 X10^3/uL; NRBC Flagged by Analyzer 0 % (0-5); Neutrophil # 8.12 X10^3/uL (2.7-7.7); Platelet Count 278 K/mm3 (150-450); RBC Distribution Width CV 12.9 % (11.6-14.6); Red Blood Count 5.27 M/mm3 (4.2-5.4); White Blood Count 11.1 K/mm3 (4.4-11.0)
[2024-03-11 12:39] LABS: ALB/GLOB Ratio 0.9 RATIO (0.9-2.4); AST(SGOT) 14 U/L (15-37); Alanine Aminotransfer ALT/SGPT 27 U/L (13-56); Albumin, Serum 3.6 g/dL (3.2-5.0); Alkaline Phosphatase 71 U/L (45-117); Anion Gap 8 (5-15); BUN 19 mg/dL (7-18); BUN/Creat Ratio 21.9 RATIO (10-20); CRP < 2.90 mg/L (0.0-3.0); Calcium,Total 9.4 mg/dL (8.5-10.1); Chloride 106 mmol/L (98-107); Creatinine, Serum 0.87 mg/dL (0.55-1.02); EST Glomerular Filtration Rate 67 mL/min (>60); Est Glom Filt Rate - Afr Amer 81 mL/min (>60); Glucose 133 mg/dL (74-106); Hepatitis B Surface Antibody Non-Reactive; Potassium 4.1 mmol/L (3.5-5.1); Protein, Total 7.6 g/dL (6.4-8.2); Rheumatoid Factor < 10.0 IU/mL (<15); Sodium Level 138 mmol/L (136-145)
[2024-03-12 05:07] LABS: ASO Titer 26.2 IU/mL (0.0-200.0); HEPATITIS B SURFACE AG Negative (Negative); Hep C Antibodies Non Reactive (Non Reactive); Hepatitis A AB, Total Negative (Negative); Hepatitis A IgM Antibody Negative (Negative); Hepatitis B Core AB IgM Negative (Negative)
[2024-03-12 14:08] LABS: Anti-Nuclear Antibody Test Positive (.)
== END | disposition home or self-care (01) ==
PROVIDERS: PCP Family Medicine; Referring Provider Dermatology; Visit Provider Dermatology
DX: L30.9 Dermatitis, unspecified (principal)
CPT/HCPCS: 36415; 80053; 80074; 81002; 85025; 85652; 86038; 86060; 86140; 86431; 86706; 86708